=== PATIENT | male | born 1995 ===

== ENCOUNTER 2017-09-26 18:54 | Emergency (ER) | payer SELFPAY ==
[2017-09-26 19:34] VITALS: BP 111/73; PULSE 76; RESP 16; TEMP 98.8; O2SAT 99
--- NOTE | 2017-09-26 19:42 | C.PDOC ---
History Of Present Illness Patient complains of left eye redness, itching, and discharge since yesterday. Patient reports his eye was crusty this morning. He wears glasses, no contact lens use. Denies any vision changes, eye pain, headache, or dizziness. Time Seen by Provider: 09/26/17 19:37 Chief Complaint (Nursing): Eye Problem History Per: Patient History/Exam Limitations: no limitations Onset/Duration Of Symptoms: Days Current Symptoms Are (Timing): Still Present Injury To Eye?: No Wears Contact Lens?: No Associated Symptoms: Itching, Discharge From Eye, Other (Redness) Recent travel outside of the [place]: No Past Medical History Reviewed: Historical Data, Nursing Documentation, Vital Signs Vital Signs: Last Vital Signs Temp 98.8 F 09/26/17 19:32 Pulse 76 09/26/17 19:32 Resp 16 09/26/17 19:32 BP 111/73 09/26/17 19:32 Pulse Ox 99 09/26/17 20:01 - Medical History PMH: No Chronic Diseases Surgical History: No Surg Hx Family History: States: Unknown Family Hx - Social History Hx Alcohol Use: No Hx Substance Use: No Review Of Systems Eyes: Positive for: Redness (Left eye), Other (Left eye itching and drainage). Negative for: Pain, Vision Change Neurological: Negative for: Headache, Dizziness Physical Exam - Physical Exam Appears: Non-toxic, No Acute Distress Skin: Normal Color, Warm, Dry Head: Atraumatic, Normacephalic Eye(s): bilateral: PERRL, EOMI, left: Other (Diffuse conjunctival and scleral injection, purulent discharge, no foreign body or eyelid inflammation) Nose: Normal Oral Mucosa: Moist Neck: Normal ROM Chest: Symmetrical Extremity: Bilateral: Normal ROM Neurological/Psych: Oriented x3, Normal Speech ED Course And Treatment O2 Sat by Pulse Oximetry: 99 Medical Decision Making Medical Decision Making: Clinical impression: Conjunctivitis No signs of orbital cellulitis, corneal abrasion or foreign body. Rx given. Advise follow up with optho Disposition Counseled Patient/Family Regarding: Diagnosis, Need For Followup, Rx Given - Disposition Referrals: Gilberto Payne [Staff Provider] - Disposition: HOME/ ROUTINE Disposition Time: 19:42 Condition: STABLE Additional Instructions: aplicar 1-2 gotas en el darcie afectado dos veces al da torri pradip semana seguimiento con especialista en ojos si no hay mejora Prescriptions: Polymyxin/Trimethoprim Sulfate [Polytrim Ophth Soln] 1 drop OS BID 7 Days #1 bottle Instructions: Conjunctivitis ([place]) (DC) Print Language: GUYANESE - POA Present On Arrival: None - Clinical Impression Clinical Impression: Conjunctivitis - PA / [employer] / Resident Statement MD/DO has reviewed & agrees with the documentation as recorded. - Scribe Statement The provider has reviewed the documentation as recorded by the Scribe Alfred Gregory All medical record entries made by the Mateo were at my direction and personally dictated by me. I have reviewed the chart and agree that the record accurately reflects my personal performance of the history, physical exam, medical decision making, and the department course for this patient. I have also personally directed, reviewed, and agree with the discharge instructions and disposition.
== END 2017-09-26 20:19 | disposition home or self-care (01) ==
LOC: EDBD 18:54 → C.ER 18:54
DX: H10.9 Unspecified conjunctivitis (principal)